=== PATIENT | female | born 1955 | race Caucasian/White ===

== ENCOUNTER 2018-03-26 14:03 | Inpatient (IN) | payer OTHER ==
[~2018-03-26] VITALS: Ht 162.6 cm; Wt 106.6 kg
[2018-03-26 14:31] LABS: BASOPHILS # (AUTO) 0.1 (0.0-0.1); BASOPHILS % 0.6 % (0.0-1.0); EOSINOPHILS # (AUTO) 0.1 (0.0-0.4); EOSINOPHILS % 0.5 % (0.0-6.0); HEMATOCRIT 38.2 % (34.2-44.1); HEMOGLOBIN 12.2 g/dL (12.0-16.0); LYMPHOCYTES # (AUTO) 1.5 (1.0-3.2); MEAN CORPUSCULAR HEMOGLOBIN 28.5 pg (28-32); MEAN CORPUSCULAR HGB CONC 31.9 g/dL (31-35); MEAN CORPUSCULAR VOLUME 89.3 fL (81-99); MONOCYTES # (AUTO) 0.9 (0.2-0.8); MONOCYTES % 9.6 % (4.4-11.3); NEUTROPHILS # (AUTO) 6.8 (2.1-6.9); NEUTROPHILS % 72.1 % (38.7-80.0); PLATELET COUNT 288 x10e3/uL (140-360); RED BLOOD COUNT 4.28 x10e6/uL (3.6-5.1); RED CELL DISTRIBUTION WIDTH 16.5 % (11.7-14.4)
[2018-03-26 14:57] LABS: ALBUMIN 3.2 g/dL (3.5-5.0); ALBUMIN/GLOBULIN RATIO 0.7 (0.8-2.0); ANION GAP 27.4 mmol/L (8-16); CALCIUM 9.2 mg/dL (8.4-10.2); CREATININE, SERUM 5.9 mg/dL (0.57-1.11)
[2018-03-26 15:01] LABS: POTASSIUM 5.4 mmol/L (3.5-5.1)
[2018-03-26] MEDS ORDERED: SODIUM CHLORIDE 0.9% 1000ML 2,000 ML IV ONE (15:15)
[2018-03-26 15:52] LABS: THYROID STIMULATING HORMONE 3.179 uIU/mL (0.350-4.940)
[2018-03-26 16:44] LABS: ABG HCO3 11 mmol/L (23-28); ABG PCO2 28 mmHg (41-51); ABG PO2 104 mmHg (80-105)
[2018-03-26] MEDS: SODIUM CHLORIDE 0.9% 1000ML 1,000 ML IV SCH (17:18)
[2018-03-26] MEDS ORDERED: CALCIUM CHLORIDE 13.6 MEQ in SODIUM CHLORIDE 0.9% 100 ML 100 ML IV ONE (17:30)
[2018-03-26] MEDS ORDERED: ONDANSETRON HCL INJ 2MG/ML 2ML 2 MG/ML VIAL IV PRN (17:30)
[2018-03-26] MEDS ORDERED: SODIUM CHLORIDE FLUSH 10 ML SYR INJ PRN (17:30)
[2018-03-26] MEDS ORDERED: ASPIRIN 81 MG CHEW TAB PO ONE (17:30)
--- NOTE | 2018-03-26 17:30 | NUR ---
SPOKE WITH AUDI AT [facility] TO HAVE DIALYSIS SET UP.
[2018-03-26] MEDS ORDERED: SODIUM BICARBONATE 8.4% INJ 50 ML SYR IV NR (17:45)
--- NOTE | 2018-03-26 18:10 | NUR ---
PROCEDURE STARTED FOR DIALYSIS ACCESS.V.S.S.
--- NOTE | 2018-03-26 18:30 | NUR ---
PROCEDURE COMPLETE. PT TOLERATED WELL.
--- NOTE | 2018-03-26 18:39 | NUR ---
FAMILY IN ROOM AND HAS BEEN UPDATED ON POC/PENDING DIALYSIS
--- NOTE | 2018-03-26 18:54 | NUR ---
SPOKE WITH ROBYN AT [facility] FOR THIS PATIENT;[phone]. WILL RELAY INFO FOR STAT DIALYSIS FOR THIS PT.
--- NOTE | 2018-03-26 19:13 | NUR ---
SPOKE WITH NURSE SUSI AND STATES SHE WILL BE HERE AT [id number]
--- NOTE | 2018-03-26 19:46 | NUR ---
SPOKE WITH DR. FERNANDEZ; WOULD LIKE THE DIALYSIS NURSE SUSI TO CONTACT FABY JIMÉNEZ Addendum: 03/26/[address] at [address] FERNANDEZ'S CELL--[phone]
[2018-03-26 20:21] LABS: CLARITY,URINE SL CLOUDY (CLEAR); COLOR,URINE YELLOW (YELLOW); KETONES,URINE NEGATIVE (NEGATIVE); LEUKOCYTE ESTERASE ,URINE NEGATIVE (NEGATIVE); NITRITE,URINE NEGATIVE (NEGATIVE); PROTEIN,URINE DIPSTICK 2+ (NEGATIVE)
[2018-03-26 20:24] LABS: AMPHETAMINES SCREEN,URINE NEGATIVE (NEGATIVE); BENZODIAZEPINES SCREEN,URINE NEGATIVE (NEGATIVE); BILIRUBIN,URINE NEGATIVE (NEGATIVE); PHENCYCLIDINE SCREEN,URINE NEGATIVE (NEGATIVE); URINE UROBILINOGEN 0.2 mg/dL (0.2 - 1)
[2018-03-26 20:48] LABS: BACTERIA,URINE RARE /HPF; RBC,URINE 0-5 /HPF (0-5)
[2018-03-26] MEDS ORDERED: VENLAFAXINE HCL75 MG PO (21:05)
[2018-03-26] MEDS ORDERED: BUPROPION XL150 MG PO (21:05)
[2018-03-26] MEDS ORDERED: LYRICA75 MG PO (21:05)
[2018-03-26] MEDS ORDERED: METOPROLOL SUCC25 MG PO (21:05)
[2018-03-26] MEDS ORDERED: ASPIR 8181 MG PO (21:05)
[2018-03-26] MEDS ORDERED: LISINOPRIL10 MG PO (21:05)
[2018-03-26] MEDS ORDERED: TORSEMIDE20 MG PO (21:05)
[2018-03-26] MEDS ORDERED: CLOPIDOGREL75 MG PO (21:05)
[2018-03-26] MEDS ORDERED: ALLOPURINOL100 MG PO (21:05)
[2018-03-26] MEDS ORDERED: PRILOSEC OTC20 MG PO (21:05)
--- NOTE | 2018-03-26 21:43 | NUR ---
SPOKE WITH MICHEAL GOLDMAN AT [facility]; SHE'S ALREADY SPOKE WITH DR. FERNANDEZ AND DR. SKAGGS RE THIS PT. WILL BE HERE within 45 min.
[2018-03-26] MEDS ORDERED: SODIUM CHLORIDE 0.9% 1000ML 2,000 ML ONE (22:40)
[2018-03-26] MEDS ORDERED: HEPARIN SOD (PORCINE) 1000 UNIT/ML SDV ONE (22:41)
[2018-03-26] MEDS ORDERED: MANNITOL 25% 12.5GM/50ML 100 ML ONE (23:09)
[2018-03-26 23:15] VITALS: BP 121/76
[2018-03-26 23:43] VITALS: BP 121/76
[2018-03-26 23:59] VITALS: BP 121/76
[2018-03-27] VITALS (36 sets, daily range): BP systolic 90–133; BP diastolic 52–102
[2018-03-27 00:06] LABS: CREATINE KINASE MB 6.6 ng/mL (0-5.0)
[2018-03-27] MEDS ORDERED: SODIUM CHLORIDE 0.9% 1000ML 1,000 ML ONE (00:07)
[2018-03-27 01:08] LABS: BASOPHILS # (AUTO) 0.1 (0.0-0.1); BASOPHILS % 0.5 % (0.0-1.0); EOSINOPHILS # (AUTO) 0.1 (0.0-0.4); EOSINOPHILS % 0.5 % (0.0-6.0); HEMATOCRIT 33.3 % (34.2-44.1); HEMOGLOBIN 10.6 g/dL (12.0-16.0); LYMPHOCYTES # (AUTO) 0.9 (1.0-3.2); MEAN CORPUSCULAR HEMOGLOBIN 28.7 pg (28-32); MEAN CORPUSCULAR HGB CONC 31.8 g/dL (31-35); MEAN CORPUSCULAR VOLUME 90.2 fL (81-99); MONOCYTES % 8.8 % (4.4-11.3); NEUTROPHILS # (AUTO) 9.1 (2.1-6.9); NEUTROPHILS % 81.1 % (38.7-80.0); PLATELET COUNT 242 x10e3/uL (140-360); RED BLOOD COUNT 3.69 x10e6/uL (3.6-5.1); RED CELL DISTRIBUTION WIDTH 16.3 % (11.7-14.4)
[2018-03-27] MEDS: SODIUM CHLORIDE 0.9% 1000ML 1,000 ML IV SCH ×2 (01:18→09:18)
[2018-03-27 01:29] LABS: ANION GAP 25.6 mmol/L (8-16); CALCIUM 8.9 mg/dL (8.4-10.2); CREATININE, SERUM 5.51 mg/dL (0.57-1.11); POTASSIUM 5.6 mmol/L (3.5-5.1)
[2018-03-27] MEDS ORDERED: SOD POLYSTYRENE SULFONATE SUSP 15 GM/60 ML BTL PO ONE (02:15)
[2018-03-27] MEDS: SODIUM BICARBONATE 650 MG TAB PO SCH ×3 (02:59→17:00)
[2018-03-27 04:42] LABS: BASOPHILS # (AUTO) 0.1 (0.0-0.1); BASOPHILS % 0.5 % (0.0-1.0); EOSINOPHILS % 0.3 % (0.0-6.0); HEMATOCRIT 33.8 % (34.2-44.1); HEMOGLOBIN 10.5 g/dL (12.0-16.0); LYMPHOCYTES # (AUTO) 0.9 (1.0-3.2); LYMPHOCYTES % 7.5 % (18.0-39.1); MEAN CORPUSCULAR HEMOGLOBIN 27.9 pg (28-32); MEAN CORPUSCULAR HGB CONC 31.1 g/dL (31-35); MEAN CORPUSCULAR VOLUME 89.7 fL (81-99); MONOCYTES # (AUTO) 1.1 (0.2-0.8); MONOCYTES % 10.1 % (4.4-11.3); NEUTROPHILS # (AUTO) 9.1 (2.1-6.9); NEUTROPHILS % 80.5 % (38.7-80.0); PLATELET COUNT 263 x10e3/uL (140-360); RED BLOOD COUNT 3.77 x10e6/uL (3.6-5.1); RED CELL DISTRIBUTION WIDTH 16.3 % (11.7-14.4)
[2018-03-27 04:52] LABS: INR 1.32; PROTHROMBIN TIME 17.5 seconds (11.9-14.5)
[2018-03-27 04:53] LABS: PARTIAL THROMBOPLASTIN TIME 41.1 seconds (23.8-35.5)
[2018-03-27 05:10] LABS: ALBUMIN 2.9 g/dL (3.5-5.0); ALBUMIN/GLOBULIN RATIO 0.7 (0.8-2.0); ANION GAP 26.6 mmol/L (8-16); CREATININE, SERUM 5.56 mg/dL (0.57-1.11); PHOSPHORUS 9.9 MG/DL (2.3-4.7); POTASSIUM 5.6 mmol/L (3.5-5.1)
--- NOTE | 2018-03-27 06:39 | Diagnostic Imaging Report ---
EXAMINATION: CHEST SINGLE (PORTABLE) INDICATION: SOB COMPARISON: None FINDINGS: AP view TUBES and LINES: None. LUNGS: Lungs are not well inflated. Lungs are clear. There is no evidence of pneumonia or pulmonary edema. PLEURA: No pleural effusion or pneumothorax. HEART AND MEDIASTINUM: Enlarged cardiac silhouette, accentuated by low lung volumes and AP technique. BONES AND SOFT TISSUES: No acute osseous lesion. Soft tissues are unremarkable. UPPER ABDOMEN: No free air under the diaphragm. IMPRESSION: No acute thoracic abnormality. Signed by: DR. Sachin Thomas MD on 03/27/2018 6:35 AM
--- NOTE | 2018-03-27 08:29 | Consultation ---
DATE OF CONSULTATION: March 27, 2018 PULMONARY CONSULTATION Patient of Dr. Conner Lagunas, Dr. Krueger, Dr. Regan Moreno. 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 Found to be hyperkalemic, azotemic and acidotic. She has been diabetic for over 20 years, hypertensive for over 20 years, history of congestive heart failure, coronary artery disease, peripheral vascular disease. She is somewhat confused as well. She works as a legal aide. She has stents in the heart and legs. She had an [place] in the past. She is known to have chronic renal failure. Her history is positive for rectal cancer. FAMILY HISTORY: Positive for cancer of the ovary. Nonsmoker. No alcohol. MEDICATIONS: Include allopurinol, aspirin, bupropion, Plavix, lisinopril, metoprolol, Lyrica, Effexor, omeprazole, torsemide. She is a somewhat poor historian and slow at this time presumably related to her uremia. PHYSICAL EXAMINATION VITALS: Temperature 97.6, pulse 78, blood pressure 118/82, respirations 20. HEENT: Head is normocephalic and atraumatic. Eyes: Extraocular movements intact. ABDOMEN: Nontender. EXTREMITIES: Decreased pulses. Absent first 2 toes of the left foot. Femoral line and dialysis catheter in groin. PLAN: Replace catheter today. Continue supportive care. Dialysis as per renal service. Thank you for this kind referral. Job#: [id number] WALT
[2018-03-27] MEDS: PANTOPRAZOLE SOD 40 MG TABEC PO SCH (08:30)
[2018-03-27] MEDS: METOPROLOL SUCCINATE 25 MG TAB XL PO SCH (09:00)
[2018-03-27] MEDS: ALLOPURINOL 100 MG TAB PO SCH ×2 (09:00→17:00)
[2018-03-27 10:43] LABS: CREATINE KINASE MB 6.3 ng/mL (0-5.0)
--- NOTE | 2018-03-27 10:58 | NUR ---
spoke to dr. stafford about dialysis access, he states ok to do a r ij temp hd cath today and a tunnelled on friday. orders entered into [facility].
[2018-03-27] MEDS ORDERED: VANCOMYCIN 1GM/NS 250 ML 250 ML IV ONE (11:00)
[2018-03-27] MEDS: SODIUM BICARBONATE 8.4% 150 ML in DEXTROSE 5% 1,000 ML IV SCH (12:30)
[2018-03-27] MEDS ORDERED: SODIUM BICARBONATE 8.4% INJ 50 ML SYR IV ONE (13:30)
[2018-03-27] MEDS ORDERED: DEXTROSE 50% SYRINGE 50 ML IV PRN (14:15)
--- NOTE | 2018-03-27 15:20 | Diagnostic Imaging Report ---
EXAMINATION: CHEST XRAY LINE PLACEMENT INDICATION: Status post dialysis catheter placement. COMPARISON: Chest radiograph 03/27/2018 at 506 AM. FINDINGS: Exam is somewhat limited by soft tissue attenuation. TUBES and LINES: Right IJ non-tunneled hemodialysis catheter terminates in the expected location of the lower SVC near the cavoatrial junction. LUNGS: Lungs are not well inflated. Lungs are clear. There is no evidence of pneumonia or pulmonary edema. PLEURA: No pleural effusion or pneumothorax. HEART AND MEDIASTINUM: The cardiomediastinal silhouette is mildly enlarged, accentuated by portable technique and low lung volumes. BONES AND SOFT TISSUES: No acute osseous lesion. Soft tissues are unremarkable. UPPER ABDOMEN: No free air under the diaphragm. IMPRESSION: Right IJ non-tunneled hemodialysis catheter terminates in the expected location of the lower SVC near the cavoatrial junction. No evidence of pneumothorax. Signed by: Dr. Julianna Garzon MD on 03/27/2018 3:16 PM
[2018-03-27 15:23] LABS: ABG HCO3 14 mmol/L (23-28); ABG PCO2 28 mmHg (41-51); ABG PH 7.31 (7.31-7.41); ABG PO2 67 mmHg (80-105)
--- NOTE | 2018-03-27 15:24 | Diagnostic Imaging Report ---
Procedure: Right internal jugular non-tunneled hemodialysis catheter placement with ultrasound guidance black ash burner operator: Dr. Julianna Garzon Pre-operative diagnosis: Requiring HD access. Post-operative diagnosis: Status post HD access placement Sedation: Local Additional Medications: Lidocaine 1% for local anesthesia Estimated blood loss: None Specimens: None Implants: 13 Fr x 15 cm Trialysis non-tunneled hemodialysis catheter TECHNIQUE/FINDINGS: Informed consent was obtained from the patient and documented in the medical record after discussion of risks and benefits. The patient was placed in the supine position. Preliminary sonographic evaluation of the right neck confirmed a patent and compressible right internal jugular vein. The neck was then prepped and draped in a standard sterile fashion. Subsequently, 1% lidocaine was infiltrated into the skin and subcutaneous tissues for local anesthesia. Then under continuous sonographic guidance, a 21 gauge needle was advanced into the right internal jugular vein and an .018'' wire was placed. A 5 Fr micropuncture sheath was placed and the existing wire was exchanged for an .035'' Amplatz wire. The tract was sequentially dilated. Then, a 13 Fr x 15 cm Trialysis triple lumen non-tunneled hemodialysis catheter was advanced. The wire was then removed. Each lumen was tested and showed adequate bidirectional flow. The catheter was secured to the skin with Monocryl, flushed with saline, and covered by a sterile dressing. No evidence of immediate complication. IMPRESSION: Placement of a right IJ non-tunneled triple lumen hemodialysis catheter with ultrasound guidance as above. Signed by: Dr. Julianna Garzon MD on 03/27/2018 3:21 PM
[2018-03-27] MEDS ORDERED: HEPARIN SOD (PORCINE) 1000 UNIT/ML SDV ONE (15:47)
--- NOTE | 2018-03-27 15:54 | NUR ---
DC PLANNING: NO FAMILY AT THE BEDSIDE FOR INITIAL INTERVIEW. NEW HD PT. TEMPORARY CATH TO BE PLACED TODAY AND PERM CATH TO BE PLACED ON FRIDAY. WBC 11.34, K 5.6, BUN/CREAT 152/5.56, GFR 8 WILL CONTINUE TO FOLLOW.
[2018-03-27] MEDS ORDERED: CLOPIDOGREL BISULFATE 75 MG TAB PO ONE (16:00)
--- NOTE | 2018-03-27 16:05 | NUR ---
SPOKE WITH PATIENT AND FAMILY ABOUT CHOICE FOR DIALYSIS CHAIR. IF THEY KEEP DR ROBLES THEY WANT [facility] [address] [place] [address] THEY DO WANT TO SPEAK WITH PT PERSONAL KIDNEY DOCTOR BRIAN IN [facility]. WILL LET SW KNOW CHOICE WHEN DECIDED.
[2018-03-27] MEDS ORDERED: ALBUMIN 25% 12.5GM 0.25 GM/ML BTL IV PRN (16:15)
[2018-03-27] MEDS ORDERED: HEPARIN SOD (PORCINE) 1000 UNIT/ML SDV IV PRN (16:15)
[2018-03-27 16:16] LABS: CHOL/HDL RATIO 3.4 (3.0-3.6)
[2018-03-27] MEDS ORDERED: SODIUM CHLORIDE 0.9% 100 ML 100 ML ONE (16:16)
[2018-03-27] MEDS ORDERED: IOPAMIDOL 370 MG/ML 200 ML INFUS..BTL INJ ONE (16:16)
--- NOTE | 2018-03-27 16:46 | Consultation ---
DATE OF CONSULTATION: March 26, 2018 Patient was seen in the emergency room. I was unable to dictate yesterday as the name was not entered on my list until late. Patient remained in the ER for a while. HISTORY OF PRESENT ILLNESS: A 62-year-old female who was apparently sent to the "closest emergency room" by her saas architect for abnormal labs. She has got a longstanding history of chronic kidney disease. Her saas architect has mentioned initiation of dialysis to her. She has had multiple medical issues including history of rectal carcinoma status post surgery, history of coronary artery disease, multiple stents, history of gout. She was developing progressive lethargy, confusion, poor appetite which is why family brought her here. Here, white count was found to be 9.37, hemoglobin 12.2. Potassium was found to be 5.6 with a bicarbonate of 10, BUN 148, and a creatinine 5.51. Baseline creatinine is not available. Labs show specific gravity of 1.030 without pH 5. Otherwise urine microscopy relatively benign. Had a chest x-ray, is pending. She has been given IV calcium, IV bicarbonate, as her blood gas showed evidence of severe metabolic acidosis with a pH 7.20, pCO2 28, pO2 of 104, bicarbonate 11. ALLERGIES: SHE IS ALLERGIC TO MORPHINE. Patient also has a history of longstanding diabetes with diabetic nephropathy, diabetic neuropathy, retinopathy, peripheral vascular disease. She has had prior toe amputation. HOME MEDICATIONS: Not reconciled yet. PHYSICAL EXAMINATION GENERAL: Awake, alert, oriented, no apparent distress. VITALS: Blood pressure 107/72, pulse rate 62, afebrile. Oxygen saturation 93% on room air. HEAD AND NECK: Cornea clear. Oral mucosa moist. Neck veins not distended. LUNGS: Relatively clear. No rales. Poor voluntary effort. HEART: S1, S2 audible. Soft 2 to 3/6 ejection systolic murmur in left sternal border. ABDOMEN: Otherwise obese, soft, nontender, but abdomen is fairly distended with flanks full. LOWER EXTREMITY EXAMINATION: Shows no edema. Chronic skin changes noted. IMPRESSIONS 1. Advanced kidney failure, now end-stage renal disease. 2. Hyperkalemia. 3. Metabolic acidosis. ER physician to put a dialysis catheter in as a tunnel and will do urgent stat dialysis. Dialysis nurse has been paged. Will start IV bicarbonate. Patient will be admitted to the ICU. Please see orders. Job#: [id number] TA
--- NOTE | 2018-03-27 17:17 | Diagnostic Imaging Report ---
EXAMINATION: CT angiogram of the abdomen and pelvis with contrast. TECHNIQUE: Helical CT images of the abdomen and pelvis were performed from the lung bases to the lesser trochanters after the intravenous administration of 100 cc of Omnipaque 300 and the oral administration of none. Coronal and sagittal reformatted images were obtained.Dose modulation, iterative reconstruction, and/or weight based adjustment of the mA/kV was utilized to reduce the radiation dose to as low as reasonably achievable. 3-D volume rendering postprocessing by technologist COMPARISON: None. CLINICAL HISTORY:Abdominal pain DISCUSSION: ABDOMEN/PELVIS: LOWER THORAX:Small pleural effusions and dependent atelectasis. HEPATOBILIARY: No focal hepatic lesions. No intra-or extrahepatic biliary ductal dilation. The gallbladder is normal. SPLEEN: No splenomegaly. PANCREAS: No focal masses or ductal dilatation. ADRENALS: No adrenal nodules. KIDNEYS/URETERS: Right kidney is atrophic with cortical thinning. Left kidney unremarkable. PELVIC ORGANS/BLADDER: Ellis catheter within the bladder which is decompressed. Uterus unremarkable. PERITONEUM/RETROPERITONEUM: No free air or fluid. LYMPH NODES: No intra-abdominal, retroperitoneal, pelvic or inguinal lymphadenopathy. VESSELS: Atherosclerotic vascular calcifications involving the descending aorta and iliac vessels. No high-grade stenosis. The celiac axis is patent. The superior mesenteric artery and branches are patent. The inferior mesenteric artery is opacified proximally and the left colic branch is opacified. The distal branches of the JACKIE extending to the sigmoid colon are not opacified, however there are multiple surgical clips in this region. The collateral vasculature to the distal colon from the inferior mesenteric arteries appears patent. GI TRACT: Scattered colonic diverticulosis without inflammatory change. No wall thickening, obstruction, or pneumatosis BONES AND SOFT TISSUE: No bony destructive lesions. No soft tissue abnormalities. IMPRESSION: No aortic dissection or aneurysm. Atherosclerotic disease of the aorta and iliac vessels with nonvisualization of the mid and distal inferior mesenteric artery which may be occluded versus postsurgical change given the multiple adjacent clips. Of note, the celiac axis, superior mesenteric artery, and internal iliac vessels are all patent. Signed by: Dr. Farhan Goldstein M.D. on 03/27/2018 5:14 PM
--- NOTE | 2018-03-27 17:27 | Consultation ---
DATE OF CONSULTATION: March 27, 2018 CARDIAC CONSULTATION REASON FOR CONSULTATION: Elevated troponin and myocardial infarction. HISTORY: A 62-year-old lady who is known with long-standing history of diabetes mellitus over the last 20 years, as well as hypertension. [facility]. Also, a few years back she had left leg bypass surgery. A couple of years ago, she had ischemic foot what it seemed to be. She was seen and followed by Dr. Stevenson. She had some form of intervention and subsequently she had amputation of her left great toe and tip of the 2nd toe. She does have chronic ischemic legs. She had cardiac evaluation and she has been told her old stents are not good, and she had 2 new stents done by Dr. Stevenson. All this was done at [facility]. Patient stopped going to Dr. Stevenson because "her kidney function became worse and one of his partners told her that she needed bypass surgery, and she did not like that." The patient is feeling miserable in the last few days. No energy, confused, debilitated, shortness of breath on exertion, etc. Her labs showed evidence of zbfzb-[id number]-[id number] renal insufficiency. She is barely making urine. She came to this institution. She had right common femoral line for that, which was not functional. Today, she had a right IJ and dialysis will be started. She does have marked electrolyte imbalance with potassium of 5.6, bicarb of only 9, BUN of 152, creatinine of 5.5. Troponin of 1.3. She is acidotic. She is having a phosphorus of 11.9. Her BNP is 2300. Her troponins are elevated. Cardiac anguiano, she does have easy fatigability, shortness of breath on minimal activity, orthopnea, cough. Vascular anguiano, the patient does have severe claudication of the lower extremities, more pronounced on the left lower extremity with tingling and numbness of both lower extremities, as well as claudication. REVIEW OF SYSTEMS: Was extensive to all systems. Only pertinent positive and negative ones are to be mentioned. GENERAL: Failure to thrive, poor appetite, uremic symptoms. No fever. No chills. HEENT: Decreased hearing and decreased vision. PULMONARY: Easy fatigability. Shortness of breath on exertion. CARDIAC: No chest pain, but nausea, vomiting and not feeling well. GI: Constipation at times. : Small quantity of urine. MUSCULOSKELETAL: Back pain. NEUROLOGICAL: Tingling and numbness of the lower extremities. VASCULAR: Severe claudication of the lower extremities. NEUROLOGICAL: At times, she had a little bit of altered mental status. SOCIAL HISTORY: Patient is . She is a patent paralegal. She is a nonsmoker and not an alcohol drinker. FAMILY HISTORY: Positive for coronary artery disease in grandfather. Diabetes in a few members. HOME MEDICATIONS 1. Allopurinol 100 mg twice a day. 2. Toprol-XL 25 mg a day. 3. Aspirin 81 mg a day. 4. Plavix 75 mg a day. 5. Lyrica 75 mg a day. 6. 150 mcg a day. 7. In addition to other p.r.n. medications. 8. Prilosec also 20 mg a day. 9. Lisinopril 10 mg a day. 10. Torsemide 20 mg a day. 11. Venoflex 75 mg a day. ALLERGIES: MORPHINE. PAST MEDICAL HISTORY 1. Diabetes mellitus with severe end-organ damage for more than 20 years. 2. Hypertension more than 20 years. 3. Chronic renal insufficiency. 4. Coronary artery disease, status post myocardial infarction [facility]. She had another cardiac catheterization and [address] Stevenson at [facility]. 5. Diffuse coronary artery disease, more arteries to be done, but they were not done because the patient is on dialysis, and told she needs maybe open heart surgery. 6. Severe peripheral arterial vascular disease with left great toe and part of the 2nd toe amputation with dusky and chronic changes in both lower extremities. 7. Hypertension. 8. Diabetes mellitus. 9. . 10. History of rectal cancer, status post surgery. PHYSICAL EXAMINATION GENERAL: Acutely ill lady as well as chronically ill. VITALS: Height of 5 feet 5 inches, weight of 225, blood pressure 120/60, heart rate of 70, respiratory rate of 18. HEENT: Decreased hearing and vision. NECK: No elevation of jugular venous pulsation. Possible left carotid bruit. CHEST: Decreased air entry with crackles. HEART: PMI in 5th left intercostal space. Normal 1st and 2nd heart sounds. No pericardial rub. ABDOMEN: Scar of previous abdominal surgery. EXTREMITIES: Decreased pulses in the left lower extremity. In fact, they are not palpable. There is a scar of previous left leg bypass with evidence of chronic changes and ischemic foot. Seems to be chronic with discoloration. NEUROLOGICAL: She is awake, alert and oriented. LAB DATA: ABGs currently show a pH of 7.31, pCO2 of 28, pO2 of 67 on 3 L nasal cannula. Bicarb of 14. Phosphorus of 11.9. BNP of 2310. TSH of 3.2. BUN of 152 and creatinine of 5.5. Sodium 135, potassium 5.6, bicarb of 9. Troponin of 1.3. EKG showing left bundle branch block. Troponin is elevated at 1.3. IMPRESSION AND PLAN 1. Iglbj-lz-cozdrld renal insufficiency: Patient is at dialysis stage. 2. Marked electrolyte imbalance. 3. Metabolic acidosis. 4. Advanced heart disease: Status post prior myocardial infarction and intervention. The patient is aware of diffuse disease and recommendation of bypass surgery before. 5. Severe peripheral vascular disease clinically, as well as prior left leg bypass surgery and amputation of the toes. 6. Peripheral neuropathy. 7. Debility. 8. Multisystem involvement. Cardiac anguiano, will resume Plavix. Patient does not take it for some days. Will load her. Small dose of beta luana with precaution. Patient needs to start on dialysis. I tried to reconcile her with Dr. Stevenson. Patient still not decided yet. I explained for her the fact she does have diffuse disease, and that telling her she needs bypass, then probably she needs bypass. They will give her the best advise although she does not like to hear that. Patient to make a decision to go back to Dr. Stevenson or me, and will take care of her. Will get an echocardiogram. Patient to make her decision if she wants us to follow her or to go back to Dr. Stevenson. I explained for her going back to Dr. Stevenson. He knows her anatomy and he knows her more. That will be for better continuity of care. Job#: [id number] NM
[2018-03-27] MEDS: INSULIN LISPRO 100 UNIT/1 ML 3ML VIAL SQ SCH ×2 (18:14→21:20)
[2018-03-27] MEDS ORDERED: MANNITOL 25% 12.5GM/50ML 100 ML ONE (18:14)
[2018-03-27] MEDS: SODIUM CHLORIDE 0.9% 1000ML 2,000 ML IV PRN (19:00)
[2018-03-28] VITALS (21 sets, daily range): BP systolic 96–130; BP diastolic 53–93
[2018-03-28] MEDS ORDERED: SODIUM CHLORIDE 0.9% 100 ML 100 ML ONE (02:09)
[2018-03-28] MEDS ORDERED: IOPAMIDOL 370 MG/ML 200 ML INFUS..BTL INJ ONE (02:10)
[2018-03-28] MEDS: SODIUM BICARBONATE 8.4% 150 ML in DEXTROSE 5% 1,000 ML IV SCH (04:45)
[2018-03-28 05:22] LABS: BASOPHILS % 0.5 % (0.0-1.0); EOSINOPHILS % 0.5 % (0.0-6.0); HEMATOCRIT 29.3 % (34.2-44.1); HEMOGLOBIN 9.6 g/dL (12.0-16.0); MEAN CORPUSCULAR HEMOGLOBIN 28.6 pg (28-32); MEAN CORPUSCULAR HGB CONC 32.8 g/dL (31-35); MEAN CORPUSCULAR VOLUME 87.2 fL (81-99); MONOCYTES # (AUTO) 0.9 (0.2-0.8); MONOCYTES % 10.7 % (4.4-11.3); NEUTROPHILS # (AUTO) 6.2 (2.1-6.9); NEUTROPHILS % 75.7 % (38.7-80.0); PLATELET COUNT 250 x10e3/uL (140-360); RED BLOOD COUNT 3.36 x10e6/uL (3.6-5.1); RED CELL DISTRIBUTION WIDTH 16.2 % (11.7-14.4)
[2018-03-28 05:46] LABS: ALBUMIN 2.4 g/dL (3.5-5.0); ALBUMIN/GLOBULIN RATIO 0.7 (0.8-2.0); ANION GAP 21.6 mmol/L (8-16); CALCIUM 8.1 mg/dL (8.4-10.2); CREATININE, SERUM 3.76 mg/dL (0.57-1.11); POTASSIUM 3.6 mmol/L (3.5-5.1)
[2018-03-28] MEDS: PANTOPRAZOLE SOD 40 MG TABEC PO SCH (09:30)
[2018-03-28] MEDS: CLOPIDOGREL BISULFATE 75 MG TAB PO SCH (09:30)
[2018-03-28] MEDS: ALLOPURINOL 100 MG TAB PO SCH ×2 (09:31→18:37)
[2018-03-28] MEDS: METOPROLOL SUCCINATE 25 MG TAB XL PO SCH (09:31)
[2018-03-28] MEDS: SODIUM BICARBONATE 650 MG TAB PO SCH ×2 (09:31→18:37)
[2018-03-28] MEDS: INSULIN LISPRO 100 UNIT/1 ML 3ML VIAL SQ SCH ×4 (09:31→21:17)
[2018-03-28] MEDS ORDERED: CHLORASEPTIC SPRAY 177 ML BTL MM PRN (18:30)
[2018-03-28] MEDS ORDERED: ACETAMINOPHEN 325 MG TAB PO PRN (18:30)
[2018-03-28] MEDS: TRAZODONE HCL 50 MG TAB PO SCH (21:50)
[2018-03-28] MEDS: ATORVASTATIN 10 MG TAB PO SCH (21:50)
[2018-03-29] VITALS (10 sets, daily range): BP systolic 119–136; BP diastolic 70–86
--- NOTE | 2018-03-29 01:02 | NUR ---
patient just had moderate formed bowel movement, also urinated as well, using bed side commode, tolerated well. bed alarm is on, will continue to monitor.
[2018-03-29] MEDS: CLOPIDOGREL BISULFATE 75 MG TAB PO SCH (09:00)
[2018-03-29] MEDS: INSULIN LISPRO 100 UNIT/1 ML 3ML VIAL SQ SCH ×4 (10:06→20:29)
[2018-03-29] MEDS: PANTOPRAZOLE SOD 40 MG TABEC PO SCH (10:10)
[2018-03-29] MEDS: LOSARTAN POTASSIUM 25 MG TAB PO SCH (10:11)
[2018-03-29] MEDS: SODIUM BICARBONATE 650 MG TAB PO SCH ×2 (10:11→18:09)
[2018-03-29] MEDS: ALLOPURINOL 100 MG TAB PO SCH ×2 (10:12→18:09)
[2018-03-29] MEDS: METOPROLOL SUCCINATE 25 MG TAB XL PO SCH (10:13)
[2018-03-29] MEDS ORDERED: CLOPIDOGREL BISULFATE 300 MG TAB-DO NOT STOCK PO ONE (10:30)
--- NOTE | 2018-03-29 12:57 | NUR ---
GIN HUNT SPOKE WITH JUDITH Schofield TO SCHEDULE HEMODIALYSIS FOR FRIDAY BETWEEN 11:30-12:00 AFTER HEART CATHETER.
--- NOTE | 2018-03-29 13:04 | NUR ---
CALLED DR. FERNANDEZ TO CLARIFY ORDER FOR TUNNEL CATHETER PLACEMENT TUNNEL CATHETER FOR TOMORROW.
[2018-03-29] MEDS: TRAZODONE HCL 50 MG TAB PO SCH (20:10)
[2018-03-29] MEDS: ATORVASTATIN 10 MG TAB PO SCH (20:10)
[2018-03-30] VITALS (9 sets, daily range): BP systolic 120–151; BP diastolic 75–102
--- NOTE | 2018-03-30 04:26 | NUR ---
hybiclinse bath given, patient was urinated approximately 200 cc dark no urine color. patient tolerated well, will continue to monitor.
[2018-03-30 05:35] LABS: BASOPHILS # (AUTO) 0.1 (0.0-0.1); BASOPHILS % 0.7 % (0.0-1.0); EOSINOPHILS # (AUTO) 0.2 (0.0-0.4); EOSINOPHILS % 2.5 % (0.0-6.0); HEMATOCRIT 32.9 % (34.2-44.1); HEMOGLOBIN 10.3 g/dL (12.0-16.0); LYMPHOCYTES # (AUTO) 1.6 (1.0-3.2); LYMPHOCYTES % 18.2 % (18.0-39.1); MEAN CORPUSCULAR HEMOGLOBIN 28.4 pg (28-32); MEAN CORPUSCULAR HGB CONC 31.3 g/dL (31-35); MEAN CORPUSCULAR VOLUME 90.6 fL (81-99); MONOCYTES # (AUTO) 1.1 (0.2-0.8); MONOCYTES % 12.8 % (4.4-11.3); NEUTROPHILS # (AUTO) 5.7 (2.1-6.9); NEUTROPHILS % 65.1 % (38.7-80.0); PLATELET COUNT 266 x10e3/uL (140-360); RED BLOOD COUNT 3.63 x10e6/uL (3.6-5.1); RED CELL DISTRIBUTION WIDTH 16.7 % (11.7-14.4)
[2018-03-30 05:57] LABS: INR 1.22; PROTHROMBIN TIME 16.5 seconds (11.9-14.5)
[2018-03-30 05:58] LABS: PARTIAL THROMBOPLASTIN TIME 45.5 seconds (23.8-35.5)
[2018-03-30 06:01] LABS: ALBUMIN 2.4 g/dL (3.5-5.0); ALBUMIN/GLOBULIN RATIO 0.6 (0.8-2.0); ANION GAP 20.3 mmol/L (8-16); CALCIUM 9.1 mg/dL (8.4-10.2); CREATININE, SERUM 3.46 mg/dL (0.57-1.11); POTASSIUM 4.3 mmol/L (3.5-5.1)
[2018-03-30] MEDS ORDERED: FENTANYL CITRATE/PF 100MCG/2 ML INJ ONE (07:22)
[2018-03-30] MEDS ORDERED: MIDAZOLAM HCL 2 MG/2 ML VIAL ONE (07:22)
[2018-03-30] MEDS ORDERED: HEPARIN SOD (PORCINE) 1000 UNIT/ML 30ML ONE (07:22)
[2018-03-30] MEDS ORDERED: LIDOCAINE HCL 1% LOCAL INJ 20 ML VIAL ONE ×2 (07:23→08:45)
[2018-03-30] MEDS ORDERED: SODIUM CHLORIDE 0.9% 1000ML 1,000 ML ONE (07:23)
[2018-03-30] MEDS ORDERED: HEPARIN SOD/SOD CHLORIDE 2,000 ML ONE (07:23)
[2018-03-30] MEDS ORDERED: IOPAMIDOL 370 MG/ML 200 ML INFUS..BTL INJ ONE (07:23)
[2018-03-30] MEDS: INSULIN LISPRO 100 UNIT/1 ML 3ML VIAL SQ SCH ×4 (07:30→21:00)
[2018-03-30] MEDS: PANTOPRAZOLE SOD 40 MG TABEC PO SCH (07:30)
[2018-03-30] MEDS ORDERED: SODIUM CHLORIDE 0.9% 500ML 500 ML ONE (08:45)
--- NOTE | 2018-03-30 09:55 | Operative Report ---
DATE OF PROCEDURE: March 30, 2018 PROCEDURE: Left cardiac catheterization. INDICATIONS: Congestive heart failure and severe coronary artery disease. TECHNICAL DETAILS: After the usual sterile preparation and draping procedures, a 4-Uzbek sheath was established in the right common femoral artery. Samantha left 4 and 3DRC catheters engaged the coronary. Pigtail for left ventriculogram. At the end of the procedure, sheath was removed. Hemostasis achieved manually. No complication. No blood loss. RESULTS 1. Left main with minimal disease. 2. LAD: There is a proximal stent jailing to the diagonal. There is 70% in-stent restenosis proximally and 90% distally, and also involving the 2nd diagonal, which is relatively large at 80%. Artery distal to that is diffusely diseased type of artery secondary to severe left ventricular dysfunction and prior myocardial infarction. 3. Circumflex coronary artery on a bend, OM 60% to 70%, small artery. 4. Right coronary artery 100% occlusion. HEMODYNAMICS: Aortic pressure 150/80. LV pressure 150/45. Left ventriculogram: Right anterior oblique view showed very large ventricle. Poor contractility. Ejection fraction of less than 15%. IMPRESSION 1. Severe disease, 3-vessel coronary artery disease as described above with in-stent restenosis. 2. Poor quality arteries. 3. Left ventricular ejection fraction of 15%. COMPLICATIONS: None. BLOOD LOSS: None. RECOMMENDATIONS: Will make 2 CDs, one to be given to the family and one to our service to look at options, but meanwhile will consult EP for ICD placement. Job#: [id number] WALT
--- NOTE | 2018-03-30 09:55 | NUR ---
received patient s/p heart cath, awake and alert, no s/s of distress noted and dressing to Right groin C/D/I with no bleeding or hematoma noted, family at bedside and call [place] in reach, will continue to monitor
--- NOTE | 2018-03-30 10:10 | NUR ---
CALL PLACED TO [facility], SPOKE TO DIMA AND INFORMED PATIENT NEEDS DIALYSIS TODAY PER MD ORDERS
[2018-03-30] MEDS: SODIUM BICARBONATE 650 MG TAB PO SCH ×2 (10:50→17:30)
[2018-03-30] MEDS: ALLOPURINOL 100 MG TAB PO SCH ×2 (10:50→17:30)
[2018-03-30] MEDS: LOSARTAN POTASSIUM 25 MG TAB PO SCH (10:50)
[2018-03-30] MEDS: CLOPIDOGREL BISULFATE 75 MG TAB PO SCH (10:50)
[2018-03-30] MEDS: METOPROLOL SUCCINATE 25 MG TAB XL PO SCH (10:50)
--- NOTE | 2018-03-30 11:00 | NUR ---
right pedal pulses palpable and verified with doppler, will continue to monitor
--- NOTE | 2018-03-30 11:30 | NUR ---
RIGHT SC dialysis cath site bleeding, pressure dressing applied, will continue to monitor
--- NOTE | 2018-03-30 11:45 | Diagnostic Imaging Report ---
Date and Time: 03/30/2018 Procedure: Tunneled hemodialysis catheter placement sorting grapple operator: Dr. Chamberlain Pre-operative diagnosis: End-stage renal disease Post-operative diagnosis: End-stage renal disease Conscious Sedation: Versed 2 mg and Fentanyl 100 mcg. Procedure was performed immediately subsequent to left heart catheterization, during which the patient had received 2 mg Versed and 50 mcg fentanyl intravenous. An additional 50 mcg of fentanyl was administered intravenously during the tunneled hemodialysis catheter placement The patient's heart rate and pulse oximetry were continuously monitored by the interventional radiology nurse. Blood pressure was monitored at 5 minute intervals. Total intraservice time for sedation: 30 minutes Additional Medications: Lidocaine 1% for local anesthesia Fluoroscopy time: 1.0 minutes Dose-area Product: 297.7 cGycm2. Contrast used: None Estimated blood loss: Less than 10 cc Blood products administered: None Specimens: Triple-lumen temporary hemodialysis catheter discarded Implants: 16 Armenian 19 cm tip-cuff tunneled hemodialysis catheter Condition at completion: Stable Disposition: Returned to floor DISCUSSION: Procedure in detail: Informed consent for the procedure was obtained from the patient after discussion of risks and benefits. Pulmonary sonographic evaluation of the right neck confirmed patency of the internal jugular vein evidenced by compressibility. The right neck and upper chest was prepped and draped in the standard sterile fashion after the patient was placed in the supine position on the fluoroscopic table. 1% lidocaine was administered into the skin and subcutaneous tissues of the right lower neck for local anesthesia. Then, under continuous sonographic guidance, a 21-gauge micropuncture needle was advanced into the right internal jugular vein. A permanent sonographic image was stored in the medical record. A 0.018 inch wire was advanced centrally under fluoroscopic guidance. The needle was then removed and access was secured with a micropuncture sheath. Intravascular length to the upper right atrium was determined using the microwire, which was then removed along with the inner dilator of the micropuncture sheath. A 0.035 inch Amplatz wire was then advanced through the micropuncture sheath into the inferior vena cava under fluoroscopic guidance. Attention was then turned to the right upper chest. A suitable catheter exit site was determined, approximately 3 fingerbreadths inferior to the clavicle. The skin was marked. 1% lidocaine was used to anesthetize a subcutaneous tract extending from the planned catheter exit site to the venotomy at the right lower neck. A stab incision was made on the right upper chest. Subsequently, the catheter was tunneled from the exit site of the right upper chest to the venotomy at the right lower neck. The retention cuff of the catheter was advanced well into the subcutaneous tunnel. The micropuncture sheath was then removed over the wire and the tract was serially dilated. Finally, a 16.5-Armenian peel-away sheath was advanced over the wire under fluoroscopic guidance. The wire and inner dilator of the sheath were removed and the catheter was advanced through the peel-away sheath, which was then broken and removed. The catheter tip was positioned in the upper right atrium. Each catheter lumen showed good bidirectional flow. Each lumen was then packed with 2000 units of heparin. The catheter was secured at the exit site on the right upper chest with monofilament nylon suture. The retention sutures for the temporary hemodialysis catheter were then cut and the catheter was removed in total. Hemostasis was achieved with manual compression. The venotomy at the right lower neck and the temporary hemodialysis catheter insertion site were closed with tissue adhesive. A sterile dressing was applied. The patient tolerated the procedure well without immediate complication. FINDINGS: Patent right internal jugular vein. IMPRESSION: Successful placement of a tunneled dual-lumen hemodialysis catheter (16-Armenian, 19-cm tip-cuff length) by a right internal jugular approach, followed by removal of right internal jugular temporary hemodialysis catheter Signed by: Dr. Gavin Chamberlain M.D. on 03/30/2018 11:42 AM
--- NOTE | 2018-03-30 13:06 | Consultation ---
DATE OF CONSULTATION: March 30, 2018 REASON FOR CONSULTATION: Evaluation for ICD. Ms. Dorsey is a 62-year-old woman with advanced coronary artery disease, advanced ischemic cardiomyopathy, EF 15%, nonrevascularizable coronary arteries. Latest cath report is in the chart done by Dr. Resendiz. EP has been consulted for ICD evaluation. PAST MEDICAL HISTORY: Diabetes, peripheral vascular disease, BKA, hypertension, coronary artery disease, PCI 2 years ago. FAMILY HISTORY: Negative for sudden or atrial fibrillation. SOCIAL HISTORY: and son at the bedside. REVIEW OF SYSTEMS: As above. Otherwise, negative for fevers, chills, loss of vision, blurry vision, ear pain, ear discharge, headache, numbness. Positive for chest pain and palpitations. Negative for cough, sputum, nausea, vomiting, dysuria, frequency, rash, bruise, bleeding, clot, anxiety, depression, heat or cold intolerance. PHYSICAL EXAMINATION VITAL SIGNS: Blood pressure 100/78. Pulse rate is 80 beats per minute. GENERAL: The patient is lying in bed in no apparent distress. NECK: Supple without bruit. Thyroid exam is normal. CARDIOVASCULAR: Examination shows S1 and S2. LUNGS: Crackles at bases. ABDOMEN: Soft and benign. EXTREMITIES: Right upper dialysis catheter is noted. SKIN: No new rash. NEURO: Nonfocal. No anxiety or depression. EKG showed sinus rhythm with left bundle-branch block. Cath showed EF 15%. ASSESSMENT AND PLAN: A 62-year-old woman with advanced ischemic cardiomyopathy and nonrevascularizable coronaries. She will be a candidate for bi-V ICD due for primary prevention of sudden cardiac and resynchronization due to her left bundle-branch block. I will discuss this with Dr. Resendiz as well. I discussed this with the family. Will wait for their final decision and proceed. Potentially can do bi-V ICD tomorrow due to left bundle-branch block, advanced ischemic cardiomyopathy, nonrevascularizable coronaries. Will continue to follow. Job#: [id number]
--- NOTE | 2018-03-30 15:45 | NUR ---
SPOKE WITH PATIENT SHE WOULD LIKE TO STAY WITH DR ROBLES SIGNED CHOICE FOR [facility], . WOULD LIKE , AND FRIDAY FROM 6 PM IF POSSIBLE. WILL FAX CLINICALS TO [facility].
--- NOTE | 2018-03-30 18:45 | NUR ---
INFORMED DR MENDOZA PATIENT CONTINUES TO HAVE BLEEDING AT SITE OF RIJ, INFORMED THAT PRESSURE WAS APPLIED EARLIER TODAY AND BLEEDING HAD SUBSIDED, DURING DIALYSIS PATIENT STARTED RE-BLEEDING AND HAS SATURATED DRESSING, INFORMED THAT DUE TO INCREASED AMOUNT OF BLOOD THINNERS PATIENT HAS RECEIVED INCREASES CHANCES OF BLEEDING, INFORMED THAT OK TO USE SURGISEAL AT SITE AND IF BLEEDING CONTINUES PRESSURE SHOULD BE APPLIED TO SITE FOR 15 MINUTES, WILL INFORM ONCOMING NURSE AND PM VANESSA HERACLIO AWARE
--- NOTE | 2018-03-30 21:13 | NUR ---
Assisted to verified bilateral pedal pulses with Doppler at this time, right site pedal pulses weaker noted than left site. Will continue to monitor.
--- NOTE | 2018-03-30 21:37 | NUR ---
Report received from AM MICHEAL Lizarraga. Patient received alert/oriented x3 resting on her bed.Patient continued on hemodialysis, dialysis Nurse in the room. Denied pain and no SOB. No respiratory distress noted. Spo2 maintained 100% with RA. Patient had small continued bleeding noted from dialysis catheter site.Dialysis nurse and charge nurse aware of that bleeding.Assisted to put extra gauze pads under the catheter site.Instructed to call for help as needed. Bed in lower position,locked. Call [facility] within reach. Will continue to monitor.
--- NOTE | 2018-03-30 22:10 | NUR ---
Pressing dressing applied on RIJ dialysis catheter site by dialysis nurse at this time. Will continue to monitor.
[2018-03-30] MEDS: TRAZODONE HCL 50 MG TAB PO SCH (23:01)
[2018-03-30] MEDS: ATORVASTATIN 10 MG TAB PO SCH (23:01)
[2018-03-31] VITALS (9 sets, daily range): BP systolic 136–152; BP diastolic 79–96
--- NOTE | 2018-03-31 01:14 | NUR ---
No active bleeding noted on RIJ dialysis catheter site at this time, Will continue to monitor.
--- NOTE | 2018-03-31 06:58 | NUR ---
Report given to oncoming MICHEAL Garcia,walking round done.
[2018-03-31] MEDS ORDERED: VANCOMYCIN HCL 1GM/NS 250 ML BAG ONE (07:22)
[2018-03-31] MEDS ORDERED: LIDOCAINE HCL 1% LOCAL INJ 20 ML VIAL ONE ×2 (07:22→12:21)
[2018-03-31] MEDS: PANTOPRAZOLE SOD 40 MG TABEC PO SCH (07:26)
[2018-03-31] MEDS: INSULIN LISPRO 100 UNIT/1 ML 3ML VIAL SQ SCH ×4 (07:30→20:28)
--- NOTE | 2018-03-31 08:17 | NUR ---
pt resting in bed, no c/o pain or s/s distress. pt NPO for pending ICD procedure. will continue to monitor.
[2018-03-31] MEDS: METOPROLOL SUCCINATE 25 MG TAB XL PO SCH (09:00)
[2018-03-31] MEDS ORDERED: ASPIRIN 81 MG ENTERIC COATED PO SCH (09:00)
[2018-03-31] MEDS: LOSARTAN POTASSIUM 25 MG TAB PO SCH (09:00)
[2018-03-31] MEDS: ALLOPURINOL 100 MG TAB PO SCH ×2 (09:00→16:48)
[2018-03-31] MEDS: SODIUM BICARBONATE 650 MG TAB PO SCH ×2 (09:00→16:48)
[2018-03-31] MEDS ORDERED: SODIUM CHLORIDE 0.9% 1000ML 2,000 ML ONE (12:21)
[2018-03-31] MEDS ORDERED: IOPAMIDOL 370 MG/ML 200 ML INFUS..BTL INJ ONE (12:25)
[2018-03-31] MEDS ORDERED: BACITRACIN 50,000 UNIT VIAL ONE (12:25)
--- NOTE | 2018-03-31 12:39 | NUR ---
SPOKE WITH TRAVIS SHAVER FROM [facility], HE STATES THAT NOT ALL OF THE CLINICALS CAME IN, HE IS SUGGESTING ANOTHER FACILITY THAT MAY BE CLOSER TO THE PT. I EXPLAINED THAT THE OPTIONS WERE GIVEN TO THE PATIENT AND THAT IS THE ONE THE FAMILY CHOSE TO GO TO [place] TO BEING ABLE TO ACCESS BY [employer]. HE IS PROCEDING WITH THE REFERRAL AND STATES HE GOT WHAT HE NEEDED IN THE FAX. WILL UPDATE WHEN GET.
[2018-03-31] MEDS ORDERED: MIDAZOLAM HCL 2 MG/2 ML VIAL ONE (12:43)
[2018-03-31] MEDS ORDERED: SODIUM CHLORIDE 0.9% 1000ML 1,000 ML ONE (12:43)
[2018-03-31] MEDS ORDERED: FENTANYL CITRATE/PF 100MCG/2 ML INJ ONE (12:43)
--- NOTE | 2018-03-31 15:02 | NUR ---
pt returned from procedure, ICD placed, pressure dressing in place, vs stable. family at bedside.
--- NOTE | 2018-03-31 15:03 | Operative Report ---
DATE OF PROCEDURE: March 31, 2018 PREOPERATIVE DIAGNOSES 1. Ischemic cardiomyopathy, ejection fraction of 15%. 2. Left bundle branch block, [place] [employer], class 3. 3. Advanced coronary artery disease, not amenable to revascularization or surgery. PROCEDURE PERFORMED: BIVI implantable cardioverter defibrillator implant and moderate sedation with 12 of Versed, 50 of fentanyl for 60 minutes while O2 sat, heart rate and blood pressure were being monitored by me and the circulating nurse. The patient was brought into the OR in a fasting state. Left chest was prepped and draped in a sterile fashion. Conscious sedation was administered. Left subclavian IV was performed. Vancomycin was given. A 3 cm skin incision was made. Subcutaneous tissue and pocket were performed. Three guidewires were inserted into the left axillary vein using the modified Seldinger technique with no complications. ICD lead advanced to the RV apex. Sensing 13, threshold 0.7, impedance 620 Ohms. Coronary sinus cannulated using a Wooly wire. Occlusive was performed. It showed suitable posterolateral branch, which was cannulated using a straight Quadripolar coronary sinus catheter. Sensing 22, threshold 2.5 and impedance 840 Ohms. At this point, a pacing lead advanced to the right atrial appendage. Sensing 5.3, threshold 1 and impedance 620 Ohms. All leads sutured to the fascia with 0 silk. Pocket profusely irrigated with antibiotic solution. Leads were connected to a [employer] BIVI ICD, serial number [id number]. Generator was placed in the pocket and sutured to the fascia using 0 silk. Subcutaneous tissue approximated with 2-0 Vicryl in 2 layers. Skin was approximated using 4-0 Vicryl and Dermabond. Patient tolerated the procedure well with no complications. CONCLUSION: BIVI implantable cardioverter defibrillator implant with moderate sedation. Clinical followup in 2 weeks. Job#: [id number] [place]
--- NOTE | 2018-03-31 18:55 | Diagnostic Imaging Report ---
EXAMINATION: CHEST SINGLE (PORTABLE) INDICATION: ^s/p Bi-V implant COMPARISON: Tunneled dialysis catheter 03/30/2018. Chest x-ray 03/27/2018. FINDINGS: AP view TUBES and LINES: Tunneled right IJ dialysis catheter with tip in the right atrium. Left-sided ICD with 3 leads and a single defibrillator component. LUNGS: Lungs are not well inflated. There are bibasilar atelectasis. There is mild prominence of the central pulmonary vasculature, consistent with pulmonary venous congestion. PLEURA: No pleural effusion or pneumothorax. HEART AND MEDIASTINUM: The cardiomediastinal silhouette is unremarkable. BONES AND SOFT TISSUES: No acute osseous lesion. Soft tissues are unremarkable. UPPER ABDOMEN: No free air under the diaphragm. IMPRESSION: 1. Interval placement of left sided ICD with single distal defibrillator component. 2. No pneumothorax. 3. Increasing central pulmonary venous congestion. Signed by: Dr. Jayson Riley M.D. on 03/31/2018 6:52 PM
--- NOTE | 2018-03-31 19:57 | NUR ---
Report received from AM nurse Radha. Patient resting comfortably on her bed. Denied pain and no SOB. No respiratory distress noted,Spo2 maintained 100% with RA. Family at the bedside. Bed in lower position,locked. Call [facility] within reach. Will continue to monitor.
[2018-03-31] MEDS: ATORVASTATIN 10 MG TAB PO SCH (20:33)
[2018-03-31] MEDS: TRAZODONE HCL 50 MG TAB PO SCH (20:33)
[2018-04-01 05:19] VITALS: BP 121/78
--- NOTE | 2018-04-01 07:17 | NUR ---
Report given to oncoming MICHEAL Benz,walking round done.
[2018-04-01] MEDS: INSULIN LISPRO 100 UNIT/1 ML 3ML VIAL SQ SCH ×2 (07:30→13:40)
[2018-04-01 08:00] VITALS: BP 138/67
[2018-04-01 08:15] LABS: BASOPHILS # (AUTO) 0.1 (0.0-0.1); BASOPHILS % 0.5 % (0.0-1.0); EOSINOPHILS # (AUTO) 0.2 (0.0-0.4); EOSINOPHILS % 1.6 % (0.0-6.0); HEMATOCRIT 32.8 % (34.2-44.1); LYMPHOCYTES # (AUTO) 1.3 (1.0-3.2); LYMPHOCYTES % 11.8 % (18.0-39.1); MEAN CORPUSCULAR HEMOGLOBIN 28.5 pg (28-32); MEAN CORPUSCULAR HGB CONC 30.5 g/dL (31-35); MEAN CORPUSCULAR VOLUME 93.4 fL (81-99); MONOCYTES # (AUTO) 1.4 (0.2-0.8); MONOCYTES % 13.3 % (4.4-11.3); NEUTROPHILS # (AUTO) 7.7 (2.1-6.9); NEUTROPHILS % 71.7 % (38.7-80.0); PLATELET COUNT 233 x10e3/uL (140-360); RED BLOOD COUNT 3.51 x10e6/uL (3.6-5.1); RED CELL DISTRIBUTION WIDTH 17.1 % (11.7-14.4)
[2018-04-01 08:20] LABS: ALBUMIN 2.4 g/dL (3.5-5.0); ALBUMIN/GLOBULIN RATIO 0.7 (0.8-2.0); ANION GAP 18.3 mmol/L (8-16); CALCIUM 8.9 mg/dL (8.4-10.2); CREATININE, SERUM 2.95 mg/dL (0.57-1.11); POTASSIUM 4.3 mmol/L (3.5-5.1)
[2018-04-01] MEDS: ALLOPURINOL 100 MG TAB PO SCH (09:00)
[2018-04-01] MEDS: SODIUM BICARBONATE 650 MG TAB PO SCH (09:00)
--- NOTE | 2018-04-01 09:00 | NUR ---
HELD MORNING AM MEDICATIONS PATIENT TO HAVE HEMODIALYSIS
[2018-04-01 10:45] VITALS: BP 113/70
[2018-04-01] MEDS ORDERED: MANNITOL 25% 12.5GM/50 ML VIAL IV PRN (10:45)
[2018-04-01] MEDS ORDERED: HEPARIN SOD (PORCINE) 1000 UNIT/ML SDV IV PRN (10:45)
[2018-04-01] MEDS ORDERED: SODIUM CHLORIDE 0.9% 250ML 500 ML IV PRN (10:45)
--- NOTE | 2018-04-01 11:51 | NUR ---
PT UPSET CALLED DR ROBLES AND SPOKE WITH HIM AND TOOK PT THE PHONE SO HE COULD SPEAK WITH HER. SHE WILL STAY HERE UNTIL HER DIALYSIS CHAIR IS SET UP AT [facility].
[2018-04-01 12:30] VITALS: BP 129/78
--- NOTE | 2018-04-01 14:33 | NUR ---
GOT CHAIR CONFIRMATION FOR , AND FRIDAYS AT 430 PM, AT [facility]. TO BEGIN THIS Friday06/01/2018. GAVE COPIES OF CONFIRMATION LETTER TO PT, FAMILY AND FILED COPY IN CHART.
--- NOTE | 2018-04-01 14:47 | NUR ---
Nutrition Screen Note RD Recommendation for Physician: -Continue current diet as ordered -RD provided education on renal diet on 04/01. Plan of Care: RD following, monitoring for tolerance and adequacy, diet education Nutrition reason for involvement: LOS Primary Diagnose(s): chronic renal insufficiency, electrolyte imbalance, metabolic acidosis, advanced heart disease PMH: Diabetes, peripheral vascular disease, BKA, hypertension, coronary artery disease, PCI Ht: 64in Wt: 235.04lb BMI: 40.3kg/m2 IBW: 120lb RD Assessment: (04/01) Chart reviewed. Labs and meds reviewed. 62yo F, who was admitted for abnormal labs (hyperkalemic, azotemic and acidotic). HbA1c at 9.7%. Pt was started on HD. Visited pt in the room. Pt reported improved appetite since admission. No nausea or vomiting noted. LBM 03/29 (per pt, it is normal for her to go every few days) No chewing or swallowing difficulty noted. RD provided education on renal diet. Will continue to monitor and follow. Current Diet: renal, cardiac, ADA diet Malnutrition Evaluation (04/01/2018) The patient does not meet criteria for a specified degree of malnutrition at this time. Will re-evaluate at follow-up as appropriate. Diet Education Needs Assessment: Diet education indicated, pt and were agreeable with plan. Learner(s): pt and Time spent: 25minutes Barriers: No barriers identified. Cultural/Language Modifications: No cultural/language modifications noted. Pt and speak Pashto. Readiness: acceptance Method: Handouts, explanation Topics: Nutrition guidelines for pt starting HD, phosphorus and potassium Understanding/Compliance: Expect good understanding/compliance from pt. Will benefit from reinforcement. All questions have been answered. Nutrition Care Level: low Signed: Clari Stewart, MS, RD, LD
[2018-04-01 15:00] VITALS: BP 152/95
--- NOTE | 2018-04-01 16:40 | NUR ---
PATIENT LEFT AGAINST MEDICAL ADVICE, IV ACCESS DISCONTINUED PRIOR TO DISCHARGE. PATIENT LEFT UNIT ESCORTED BY HER OWN FAMILY AND IN HER OWN ROLLATOR WALKER
== END 2018-04-01 16:43 | disposition left against medical advice (07) | DRG 222 ==
LOC: ER 14:03 → ERHOLD 17:31 → ICU 23:40 → IMCU 03-28 19:44
PROC: 5A1D70Z Performance of Urinary Filtration, Intermittent, Less than 6 Hours Per Day (ICD-10-PCS; 2018-03-26)
PROC: 5A1D70Z Performance of Urinary Filtration, Intermittent, Less than 6 Hours Per Day (ICD-10-PCS; 2018-03-27)
PROC: 02HV33Z Insertion of Infusion Device into Superior Vena Cava, Percutaneous Approach (ICD-10-PCS; 2018-03-27)
PROC: B548ZZA Ultrasonography of Superior Vena Cava, Guidance (ICD-10-PCS; 2018-03-27)
PROC: 5A1D70Z Performance of Urinary Filtration, Intermittent, Less than 6 Hours Per Day (ICD-10-PCS; 2018-03-28)
PROC: 4A023N7 Measurement of Cardiac Sampling and Pressure, Left Heart, Percutaneous Approach (ICD-10-PCS; principal; 2018-03-30)
PROC: B2111ZZ Fluoroscopy of Multiple Coronary Arteries using Low Osmolar Contrast (ICD-10-PCS; 2018-03-30)
PROC: B2151ZZ Fluoroscopy of Left Heart using Low Osmolar Contrast (ICD-10-PCS; 2018-03-30)
PROC: 0JH63XZ Insertion of Tunneled Vascular Access Device into Chest Subcutaneous Tissue and Fascia, Percutaneous Approach (ICD-10-PCS; 2018-03-30)
PROC: 02HV33Z Insertion of Infusion Device into Superior Vena Cava, Percutaneous Approach (ICD-10-PCS; 2018-03-30)
PROC: B548ZZA Ultrasonography of Superior Vena Cava, Guidance (ICD-10-PCS; 2018-03-30)
PROC: 5A1D70Z Performance of Urinary Filtration, Intermittent, Less than 6 Hours Per Day (ICD-10-PCS; 2018-03-30)
PROC: 0JH609Z Insertion of Cardiac Resynchronization Defibrillator Pulse Generator into Chest Subcutaneous Tissue and Fascia, Open Approach (ICD-10-PCS; 2018-03-31)
PROC: 02HK3KZ Insertion of Defibrillator Lead into Right Ventricle, Percutaneous Approach (ICD-10-PCS; 2018-03-31)
PROC: 02H63KZ Insertion of Defibrillator Lead into Right Atrium, Percutaneous Approach (ICD-10-PCS; 2018-03-31)
PROC: 5A1D70Z Performance of Urinary Filtration, Intermittent, Less than 6 Hours Per Day (ICD-10-PCS; 2018-04-01)
DX: I13.2 Hypertensive heart and chronic kidney disease with heart failure and with stage 5 chronic kidney disease, or end stage renal disease (principal); N18.6 End stage renal disease; G93.49 Other encephalopathy; N17.9 Acute kidney failure, unspecified; E87.2 Acidosis; E87.5 Hyperkalemia; E87.6 Hypokalemia; I50.9 Heart failure, unspecified; E11.22 Type 2 diabetes mellitus with diabetic chronic kidney disease; I25.10 Atherosclerotic heart disease of native coronary artery without angina pectoris; E11.42 Type 2 diabetes mellitus with diabetic polyneuropathy; I25.2 Old myocardial infarction; Z85.048 Personal history of other malignant neoplasm of rectum, rectosigmoid junction, and anus; Z09 Encounter for follow-up examination after completed treatment for conditions other than malignant neoplasm; Z95.5 Presence of coronary angioplasty implant and graft; Z95.820 Peripheral vascular angioplasty status with implants and grafts; Z88.5 Allergy status to narcotic agent; Z80.41 Family history of malignant neoplasm of ovary; Z89.412 Acquired absence of left great toe; Z89.422 Acquired absence of other left toe(s); I44.7 Left bundle-branch block, unspecified; I25.5 Ischemic cardiomyopathy; I50.84 End stage heart failure
CPT/HCPCS: 33225; 33249; 36415; 36556; 36558; 36600; 71045; 74174; 74470; 76937; 80048; 80053; 80061; 80307; 81001; 82140; 82550; 82553; 82805; 82948; 83036; 83605; 83735; 83880; 83970; 84100; 84443; 84484; 85025; 85610; 85730; 86704; 86705; 86706; 86707; 90962; 93005; 93306; 93458; 96372; 99284; C1750; C1766; C1769; J1644; J2001; J2150; J2250; J2405; J3370; J7030; J7040; J7070; Q9967